=== PATIENT | female | born 1995 | race Caucasian/White ===

== ENCOUNTER 2017-07-04 21:45 | Emergency (ER) | payer OTHER ==
[~2017-07-04] VITALS: Ht 157.5 cm; Wt 63.2 kg
[~2017-07-04 21:45] MED LIST: BCPILLS PO
[2017-07-04 21:49] VITALS: TEMP 36.6; Ht 157.5 cm; Wt 63.2 kg
[2017-07-04] MEDS ORDERED: XYLOCAINE 1%/SOD BICARB 20 ML VIAL INFIL ONE (22:01)
[2017-07-04 22:37] VITALS: BP 119/68; PULSE 60; O2SAT 99
--- NOTE | 2017-07-04 22:37 | EMERGENCY ROOM VISIT NOTE ---
ED Visit Note First contact with patient: 21:54 CHIEF COMPLAINT: Chin laceration HISTORY OF PRESENT INJURY: This 22-year-old female patient presents to the emergency department approximately 1 hour after they fell and struck the chin causing the laceration described below. There is no active bleeding. No loss of conscious. Has not complained of jaw or neck pain. There has been no vomiting or unusual behavior other than being in pain. They rate the pain as stinging and 3/10. No other injury suspected. Patient is acting normally. No headache, blurry vision, nausea, or abdominal pain. The patient's tetanus shot is up to date. REVIEW OF SYSTEMS: A 6 system review of systems was completed with positives and pertinent negatives listed in the HPI. ALLERGIES: Penicillin MEDICATIONS: Reviewed PMH: Otherwise healthy SOCIAL HISTORY: Does not smoke. She has a [employer] student. PHYSICAL EXAM: Vital Signs: Reviewed Nurse's notes, vital signs stable. GENERAL : 22-year-old female, in no acute distress, well-developed, well-nourished. NEURO: The patient is alert and oriented to person place and time. No focal neurological defects. EYES: Pupils are round, equal, and react to light. EOMI. NECK: Supple. No cervical spine tenderness. EARS: No hemotympanum. FACE: No facial bone tenderness or mandibular tenderness. The mouth can open fully. The teeth are well aligned. No loose or chipped teeth. SKIN: There is a 1 cm laceration noted on the chin whose edges are gaping widely apart. There is no foreign material in the wound and no active active bleeding. EMERGENCY DEPARTMENT COURSE: I examined the patient. Verbal consent was obtained to perform the procedure. Using sterile technique the wound was cleansed with Betadine. The area was sterilely draped. 2 ml of 1% buffered lidocaine was used to anesthetize the laceration on the chin. Once the patient was anesthetized, the wound was copiously irrigated under pressure with sterile saline. The wound was explored and was as described above. The laceration was repaired using 4 simple interrupted 6-0 nylon sutures with the wound edges being well approximated. The patient tolerated the procedure well. Hemostasis was achieved. The area was cleaned with sterile saline and dressed with bacitracin ointment and bandage. The patient was discharged home in good condition. DIAGNOSIS: Chin laceration DISCHARGE INSTRUCTIONS: Keep wound clean. It is okay to gently wash the area with soapy water. Do not submerse it in water for long periods of time such as swimming, going in hot tubs or taking baths until the sutures come out. Do not allow any crusting or dried blood to accumulate on sutures. If this occurs, use a 1:1 solution of hydrogen peroxide/water on a Q-tip to clean the wound. Use an antibiotic ointment for 2 days, then let wound dry. Suture removal in 6 days. Return sooner for any signs of infection (increasing redness, swelling, drainage). Ice and elevate for swelling and pain. Ibuprofen 600 mg and Tylenol 1000 mg every 6 hrs for pain. Keep covered when in sun until sutures removed then SPF 50 or higher for one year. Vitamin E oil if desired two weeks after suture removal for reduction of scar.
== END 2017-07-04 22:40 | disposition home or self-care (01) ==
LOC: C.EDB 21:48 → C.EDD 22:40
DX: S01.81XA Laceration without foreign body of other part of head, initial encounter (principal); W22.09XA Striking against other stationary object, initial encounter; W19.XXXA Unspecified fall, initial encounter